=== PATIENT | male | born 1970 | race Two or more races ===

== ENCOUNTER 2017-06-12 13:32 | Emergency (ER) | payer SELFPAY ==
[2017-06-12 14:01] VITALS: BP 128/87
--- NOTE | 2017-06-12 14:48 | EDM.PDOC ---
ED HPI GENERAL MEDICAL PROBLEM - General Chief Complaint: Skin Complaint Stated Complaint: SWELLING ON BACK OF NECK Time Seen by Provider: 06/12/17 14:28 Source of Information: Reports: Patient History Limitations: Reports: No Limitations - History of Present Illness INITIAL COMMENTS - FREE TEXT/NARRATIVE: Patient is a 46-year-old male presents ED complaining of a small lesion to the right posterior aspect of his neck. States started pressure 2 days ago thinking was related to a ingrown hair. Pop did express and small amount of yellowish white pus. Since and it scabbed over. Has some mild redness localized. He has no history of MRSA but states she's had multiple sores as such to the top of his head. He has no additional lesions as described to the remainder of his body. There's been no documented fever. No drainage as a recent. Again no history of MRSA. back of neck Pain Score (Numeric/FACES): 7 - Related Data Allergies Allergy/AdvReac Type Severity Reaction Status Date / Time No Known Allergies Allergy Verified 06/12/17 14:01 Home Meds: Home Meds Doxycycline [Vibramycin] 100 mg PO Q12HR #14 cap 06/12/17 [Rx] Past Medical History - Past Health History Medical/Surgical History: Denies Medical/Surgical History Social & Family History - Family History Family Medical History: Noncontributory - Tobacco Use Smoking Status *Q: Never Smoker Years of Tobacco use: 15 Packs/Tins Daily: 0.5 - Caffeine Use Caffeine Use: Reports: Energy Drinks - Alcohol Use Days Per Week of Alcohol Use: 6 Number of Drinks Per Day: 1 Total Drinks Per Week: 6 - Recreational Drug Use Recreational Drug Use: No Drug Use in Last 12 Months: No Recreational Drug Type: Reports: Marijuana/Hashish ED ROS GENERAL - Review of Systems Review Of Systems: ROS reveals no pertinent complaints other than HPI. ED EXAM, SKIN/RASH Exam: See Below Exam Limited By: No Limitations General Appearance: Alert, WD/WN, No Apparent Distress Ears: Hearing Grossly Normal Nose: Normal Inspection Throat/Mouth: Normal Inspection, Normal Oropharynx Head: Atraumatic, Normocephalic Neck: Supple, Non-Tender, Other (Small scabbed area measuring approximately 1 cm in diameter with no fluctuance or drainage present. Approximate 3 cm x 3 cm indurated area. Mild redness localized to the scab area. No pain with palpation. ). No: Lymphadenopathy (L), Lymphadenopathy (R) Respiratory/Chest: No Respiratory Distress, No Accessory Muscle Use Cardiovascular: Normal Peripheral Pulses Peripheral Pulses: 2+: Radial (R) Neurological: Alert, Oriented, CN II-XII Intact, Normal Cognition, No Motor/ Sensory Deficits Psychiatric: Normal Affect, Normal Mood Skin: Warm, Dry Course - Vital Signs Last Recorded V/S: Last Vital Signs Temp 96.6 F 06/12/17 13:50 Pulse 88 06/12/17 13:50 Resp 18 06/12/17 13:50 BP 128/87 06/12/17 13:50 Pulse Ox 95 06/12/17 13:50 - Re-Assessments/Exams Free Text/Narrative Re-Assessment/Exam: Nothing to I&D at this time. Treatment will be doxycycline 100 mg twice a day for 7 days. Warm compresses to the affected area at least 3 times a day 30 minute duration. Will discharge patient home with instructions as documented. Departure - Departure Time of Disposition: 14:46 Disposition: Home, Self-Care 01 Condition: Good Clinical Impression: Abscess - Discharge Information Prescriptions: Doxycycline [Vibramycin] 100 mg PO Q12HR #14 cap Referrals: PCP,None [Primary Care Provider] - Forms: ED Department Discharge, ED Return to Work/School Form Additional Instructions: As discussed will have you take doxycycline 100 mg twice a day for 7 days. Apply warm compresses to the affected area at least 3 times a day, 30 minutes in duration, if draining wound needs to be covered. Follow-up with primary care provider at conclusion of therapy if wound is not resolving. Return to the ED if you develop any new or worsening symptoms. Maintain good hygiene with treating the lesion.
== END 2017-06-12 15:05 | disposition home or self-care (01) ==
LOC: JD.ED 13:32
DX: L02.11 Cutaneous abscess of neck (principal)
CPT/HCPCS: 99283

== ENCOUNTER 2017-06-15 20:15 | Emergency (ER) | payer SELFPAY ==
[2017-06-15 20:35] VITALS: BP 142/114
--- NOTE | 2017-06-15 20:35 | EDM.PDOC ---
ED HPI GENERAL MEDICAL PROBLEM - General Chief Complaint: Skin Complaint Stated Complaint: POSS CYST ON NECK Time Seen by Provider: 06/15/17 20:34 Source of Information: Reports: Patient - History of Present Illness INITIAL COMMENTS - FREE TEXT/NARRATIVE: Patient is here today for reevaluation for an abscess on the posterior right side of his neck. He states that this initially started as an ingrown hair, did have some drainage. He was evaluated in emergency room on 06/12/2017 and started on doxycycline. They were unable to obtain culture of drainage at that time. Patient comes in today for reevaluation as this had a very thick scab today and then some greenish drainage. He wanted to make sure that he was okay to continue outpatient treatment. Patient denies any chronic health conditions, not on any medications on a regular basis. Neck Pain Score (Numeric/FACES): 1 - Related Data Allergies Allergy/AdvReac Type Severity Reaction Status Date / Time No Known Allergies Allergy Verified 06/12/17 14:01 Home Meds: Home Meds Doxycycline [Vibramycin] 100 mg PO Q12HR #14 cap 06/12/17 [Rx] Past Medical History - Past Health History Medical/Surgical History: Denies Medical/Surgical History Social & Family History - Family History Family Medical History: Noncontributory - Tobacco Use Smoking Status *Q: Never Smoker Years of Tobacco use: 15 Packs/Tins Daily: 0.5 - Caffeine Use Caffeine Use: Reports: Energy Drinks - Alcohol Use Days Per Week of Alcohol Use: 6 Number of Drinks Per Day: 1 Total Drinks Per Week: 6 - Recreational Drug Use Recreational Drug Use: No Drug Use in Last 12 Months: No Recreational Drug Type: Reports: Marijuana/Hashish ED ROS GENERAL - Review of Systems Review Of Systems: See Below Constitutional: Reports: No Symptoms. Denies: Fever, Chills Respiratory: Reports: No Symptoms Cardiovascular: Reports: No Symptoms Skin: Reports: Wound, Lesions Psychiatric: Reports: No Symptoms Hematologic/Lymphatic: Reports: No Symptoms ED EXAM, SKIN/RASH Exam: See Below Exam Limited By: No Limitations General Appearance: Alert, WD/WN, No Apparent Distress Skin: Warm, Other (Abscess to the posterior right neck. This measures approximately 3cm in diameter. Very mild erythema, no warmth. Small eschar where this had been previously draining to the center.) Course - Vital Signs Last Recorded V/S: Last Vital Signs Temp 97.1 F 06/15/17 20:34 Pulse 88 06/15/17 20:34 Resp 20 06/15/17 20:34 BP 142/114 H 06/15/17 20:34 Pulse Ox 95 06/15/17 20:34 - Re-Assessments/Exams Free Text/Narrative Re-Assessment/Exam: Abscess to the right posterior neck, this is not fluctuant and appears to be more inflamed. Unable to obtain drainage for culture. Do not feel I & D indicated. Patient will continue on his doxycycline, warm compresses several times a day. He is not diabetic, no chronic medical conditions. No history of MRSA. If this should worsen or persist that may consider drainage on an outpatient basis. Blood pressure is elevated during his visit today, patient takes states that he has been taking some weight loss supplements that are stimulants he also had an energy drink. Patient will have this rechecked on an outpatient basis. 06/15/17 21:05 06/15/17 21:07 Departure - Departure Time of Disposition: 20:54 Disposition: Home, Self-Care 01 Condition: Good Clinical Impression: Abscess of skin of neck - Discharge Information Referrals: PCP,None [Primary Care Provider] - Forms: ED Department Discharge Additional Instructions: Keep area clean and dry. You may cover this at work if you need to. Hot compresses several times daily to encourage this to drain. Complete your course of antibiotic. If you should have any issues with this does not resolve, feel free to contact me in the clinic [phone]
== END 2017-06-15 21:02 | disposition home or self-care (01) ==
LOC: JD.ED 20:15
DX: L02.11 Cutaneous abscess of neck (principal)
CPT/HCPCS: 99282; 99283